=== PATIENT | male | born 2000 | race Caucasian/White ===

== ENCOUNTER 2021-11-12 15:34 | Emergency (ER) | payer SELFPAY ==
[~2021-11-12] VITALS: Ht 167.7 cm; Wt 70.3 kg
[~2021-11-12 15:34] MED LIST: ONDA8TAB13 PO; TRM50T PO
[2021-11-12] MEDS ORDERED: ONDANSETRON 4 MG (ZOFRAN) ORAL DISSOLVE TAB PO ONE (15:45)
--- NOTE | 2021-11-12 15:48 | ED Neurological Problem ---
General Chief Complaint: Neurological Problems Stated Complaint: HYPOGLYCEMIA History of Present Illness Date Seen by Provider: Nov 12, 2021 Time Seen by Provider: 15:34 Initial Comments 21-year-old Nigerian presents for possible seizure that occurred just prior to arrival. He was brought by EMS. He was in a parking lot to pay his cell phone bill, he was sitting in the passenger seat with his seatbelt on, his girlfriend reports that he began to shake his upper and lower extremities, he began to get very rigid and saliva was coming from his mouth. It lasted 1-2 min, she believes. Patient does not recall the event, but was immediately coherent after it occurred. EMS was called, his blood sugar was found to be 47. No seizure activity when EMS arrived, he was coherent and answering questions appropriately. He denies a history of diabetes. He has not had anything to eat or drink since awakening this morning. He reports eating late afternoon yesterday and not eating again in the evening. He reports mild nausea at the present time, no vomiting. He did not have head injury during the event, girlfriend reports he did not hit his head. He was not incontinent of urine or stool. Timing/Duration: 1/2 hour Associated Symptoms: seizures Allergies and Home Medications Allergies Coded Allergies: No Known Drug Allergies (Unverified , 07/07/16) Patient Home Medication List Home Medication List Reviewed: Yes Ondansetron (Ondansetron Odt) 8 Mg Tab.rapdis, 8 MG PO Q6H PRN for NAUSEA Prescribed by: ISAURO MAGANA on 07/07/16 1800 Tramadol HCl (Tramadol HCl) 50 Mg Tablet, 50 MG PO, (Reported) Entered as Reported by: PATTI ROWELL on 07/07/16 0913 Review of Systems Review of Systems Constitutional: no symptoms reported, see HPI ( drops of blood and output some fluids then okay you just want like) Psychiatric/Neurological: See HPI; Denies Headache; Petit Mal Seizures All Other Systems Reviewed Negative Unless Noted: Yes Past Elqbzbm-Gyudfc-Sejhus Hx Past Medical History Orthopedic Reproductive Disorders: No Family Medical History Reviewed Nursing Family Hx No Pertinent Family Hx Physical Exam Vital Signs Vital Signs - First Documented 11/12/21 15:34 Temp 36.4 Pulse 129 Resp 24 B/P (MAP) 142/89 (106) Pulse Ox 99 Capillary Refill : Height, Weight, BMI Height: 5'7" Weight: 156lbs. oz. [id number]; 24.43 BMI Method:Stated General Appearance: WD/WN, no apparent distress HEENT: PERRL/EOMI, normal ENT inspection, TMs normal, pharynx normal Neck: non-tender, full range of motion, supple, normal inspection Respiratory: chest non-tender, lungs clear, normal breath sounds, no respiratory distress Cardiovascular: normal peripheral pulses, regular rate, rhythm Gastrointestinal: normal bowel sounds, non tender, soft Neurologic/Psychiatric: pump erector II-XII nml as tested, no motor/sensory deficits, alert, normal mood/affect, oriented x 3 Crainal Nerves: normal hearing, normal speech, PERRL; No abnormal speech, No facial asymmetry, No facial droop Coordination/Gait: normal finger to nose, normal gait Motor/Sensory: no motor deficit, no sensory deficit, other (steady gait) Skin: normal color, warm/dry Progress/Results/Core Measures Results/Orders Lab Results Laboratory Tests Test 11/12/21 15:39 11/12/21 15:55 11/12/21 16:15 11/12/21 16:31 Range/Units Glucometer 71 236 H 70-110 MG/DL White Blood Count 9.4 4.3-11.0 10^3/uL Red Blood Count 5.50 4.30-5.52 10^6/uL Hemoglobin 16.4 13.3-17.7 g/dL Hematocrit 49 40-54 % Mean Corpuscular Volume 89 80-99 fL Mean Corpuscular Hemoglobin 30 25-34 pg Mean Corpuscular Hemoglobin Concent 34 32-36 g/dL Red Cell Distribution Width 11.9 10.0-14.5 % Platelet Count 308 130-400 10^3/uL Mean Platelet Volume 10.6 9.0-12.2 fL Immature Granulocyte % (Auto) 1 % Neutrophils (%) (Auto) 43 42-75 % Lymphocytes (%) (Auto) 39 12-44 % Monocytes (%) (Auto) 10 0-12 % Eosinophils (%) (Auto) 6 0-10 % Basophils (%) (Auto) 2 0-10 % Neutrophils # (Auto) 4.0 1.8-7.8 10^3/uL Lymphocytes # (Auto) 3.7 1.0-4.0 10^3/uL Monocytes # (Auto) 0.9 0.0-1.0 10^3/uL Eosinophils # (Auto) 0.6 H 0.0-0.3 10^3/uL Basophils # (Auto) 0.2 H 0.0-0.1 10^3/uL Immature Granulocyte # (Auto) 0.1 0.0-0.1 10^3/uL Sodium Level 137 135-145 MMOL/L Potassium Level 4.0 3.6-5.0 MMOL/L Chloride Level 104 98-107 MMOL/L Carbon Dioxide Level 16 L 21-32 MMOL/L Anion Gap 17 H 5-14 MMOL/L Blood Urea Nitrogen 16 7-18 MG/DL Creatinine 0.99 0.60-1.30 MG/DL Estimat Glomerular Filtration Rate 110 BUN/Creatinine Ratio 16 Glucose Level 77 70-105 MG/DL Calcium Level 9.2 8.5-10.1 MG/DL Corrected Calcium 8.5-10.1 MG/DL Total Bilirubin 0.2 0.1-1.0 MG/DL Aspartate Amino Transf (AST/SGOT) 19 5-34 U/L Alanine Aminotransferase (ALT/SGPT) 40 0-55 U/L Alkaline Phosphatase 69 40-136 U/L Total Protein 7.4 6.4-8.2 GM/DL Albumin 4.7 H 3.2-4.5 GM/DL Serum Alcohol < 10 <10 MG/DL My Orders Orders - HUDSON ASHTON Alcohol (11/12/21 15:50) Cbc With Automated Diff (11/12/21 15:50) Comprehensive Metabolic Panel (11/12/21 15:50) Drug Screen Stat (Urine) (11/12/21 15:50) Ua Culture If Indicated (11/12/21 15:50) Ed Iv/Invasive Line Start (11/12/21 15:50) D5 Ns 1000 Ml Iv Solution (Dextrose 5%/0 (11/12/21 16:00) Prolactin (11/12/21 16:15) Accucheck Stat ONCE (11/12/21 16:28) Medications Given in ED Current Medications Medications Dose Ordered Sig/Aylin Route Start Time Stop Time Status Last Admin Dose Admin Dextrose/Sodium Chloride 1,000 ml @ 0 mls/hr Q0M ONCE IV 11/12/21 16:00 11/12/21 16:01 DC 11/12/21 16:04 1,000 MLS/HR Ondansetron HCl 4 mg ONCE ONCE PO 11/12/21 15:45 11/12/21 15:46 DC 11/12/21 15:43 4 MG Vital Signs/I&O 11/12/21 11/12/21 15:34 16:44 Temp 36.4 36.4 Pulse 129 129 Resp 24 24 B/P (MAP) 142/89 (106) 142/89 Pulse Ox 99 99 Progress Progress Note : Time: 15:34 Progress Note patient seen and evaluated, Accucheck 76. Continuing to take the Glucose gel. Will give D5 NS IV. 1600 patient requesting d/c, no further seizures or complaints. No urine provided. 1615 accucheck 236, no complaints at this time. Discharge instructions and return precautions reviewed. Departure Impression Primary Impression: Hypoglycemia Additional Impression: Seizure Disposition: 01 HOME, SELF-CARE Condition: Improved Departure-Patient Inst. Decision time for Depature: 16:15 Referrals: NO,LOCAL PHYSICIAN (PCP/Family) Primary Care Physician Patient Instructions: Seizures, Adult (DC), Low Blood Sugar, Adult (DC) Add. Discharge Instructions: Follow-up with Dr. VARELA in 2 to 3 weeks. Sooner if symptoms worsen. Make sure you eat small frequent meals. Return to the emergency department for new, urgent healthcare needs. All discharge instructions reviewed with patient and/or family. Voiced understanding. HUDSON ASHTON Nov 12, 2021 15:48
[2021-11-12] MEDS ORDERED: D5 NS 1000 ML IV SOLUTION 1,000 ML IV ONE (16:00)
[2021-11-12 16:03] LABS: BASOPHILS # (AUTO) 0.2 10^3/uL (0.0-0.1); BASOPHILS % (AUTO) 2 % (0-10); EOSINOPHILS # (AUTO) 0.6 10^3/uL (0.0-0.3); EOSINOPHILS % (AUTO) 6 % (0-10); HEMATOCRIT 49 % (40-54); HEMOGLOBIN 16.4 g/dL (13.3-17.7); LYMPHOCYTES # (AUTO) 3.7 10^3/uL (1.0-4.0); LYMPHOCYTES % (AUTO) 39 % (12-44); MEAN CORPUSCULAR HEMOGLOBIN 30 pg (25-34); MEAN CORPUSCULAR HGB CONC 34 g/dL (32-36); MEAN CORPUSCULAR VOLUME 89 fL (80-99); MEAN PLATELET VOLUME 10.6 fL (9.0-12.2); MONOCYTES # (AUTO) 0.9 10^3/uL (0.0-1.0); MONOCYTES % (AUTO) 10 % (0-12); NEUTROPHILS % (AUTO) 43 % (42-75); PLATELET COUNT 308 10^3/uL (130-400); WHITE BLOOD COUNT 9.4 10^3/uL (4.3-11.0)
[2021-11-12 16:29] LABS: ALANINE AMINOTRANSFERASE 40 U/L (0-55); ALBUMIN 4.7 GM/DL (3.2-4.5); ALKALINE PHOSPHATASE 69 U/L (40-136); BILIRUBIN,TOTAL 0.2 MG/DL (0.1-1.0); BUN/CREATININE RATIO 16; CALCIUM 9.2 MG/DL (8.5-10.1); CARBON DIOXIDE 16 MMOL/L (21-32); CHLORIDE 104 MMOL/L (98-107); CREATININE SERUM 0.99 MG/DL (0.60-1.30); GFR ESTIMATED 110; GLUCOSE 77 MG/DL (70-105); SODIUM 137 MMOL/L (135-145); TOTAL PROTEIN 7.4 GM/DL (6.4-8.2)
[2021-11-12 16:44] VITALS: BP 142/89
== END 2021-11-12 16:47 | disposition home or self-care (01) ==
LOC: EDUNIT# 15:34 → ER 15:35
DX: E16.2 Hypoglycemia, unspecified (principal); R56.9 Unspecified convulsions
CPT/HCPCS: 80053; 82947; 85025; 99284; G0480; 36415; 80320; 96360